=== PATIENT | male | born 1970 | race Caucasian/White ===

== ENCOUNTER 2019-10-07 08:30 | Inpatient (IN) ==
--- NOTE | 2019-09-19 12:41 | PAT Medication Instructions ---
Medication Instructions Date of Service September 19, 2019 Home Medications cholecalciferol (vitamin D3) [Vitamin D3] 1,000 unit PO QAM cyanocobalamin (vitamin B-12) 1,000 mcg PO QAM ibuprofen 600 mg PO Q6H PRN multivitamin 1 tab PO QAM omega 3,6,9 combination no.7 10,000 mg PO QAM omeprazole 20 mg PO QAM ASK your surgeon for instructions ibuprofen 600 mg PO Q6H PRN STOP taking 2 weeks before surgery (or as soon as possible if surgery is within 2 weeks) omega 3,6,9 combination no.7 10,000 mg PO QAM DO NOT take the morning of surgery cholecalciferol (vitamin D3) [Vitamin D3] 1,000 unit PO QAM cyanocobalamin (vitamin B-12) 1,000 mcg PO QAM multivitamin 1 tab PO QAM Take morning of surgery With a small sip of water, OTHERWISE NOTHING TO EAT OR DRINK AFTER MIDNIGHT: omeprazole 20 mg PO QAM Other Notes If you have any questions please call us at [phone] or [phone] or [phone] or [phone]
--- NOTE | 2019-09-19 12:42 | Anesthesiology Consultation ---
Date of Service September 19, 2019 Assessment & Plan (1) Encounter for pre-operative examination: - Awaiting review preop testing (labs, EKG, CXR). - Awaiting surgeon-ordered PCP preop evaluation. Chart Review Chart Review: Patient seen in Pre Admission Testing Teaching & Discussion Pre-Anesthesia Teaching/Discussion Notes: Instructed NPO after midnight before surgery,except medications with 15 cc of water. Medication instructions provided according to the PAT guidelines. History Surgery Operation Date: 10/07/19 13:00 Proposed Procedures p Left Total Hip Arthroplasty - Davis Gilbert Height/Weight Height: 5 ft 8 in Weight: 84.9 kg Allergies Allergy/AdvReac Type Severity Reaction Status Date / Time No Known Allergies Allergy Verified 09/12/19 11:56 Medications Home Medications Medication Instructions Recorded Confirmed Last Taken cholecalciferol (vitamin D3) 1,000 unit PO QAM 09/12/19 09/12/19 Unknown [Vitamin D3] cyanocobalamin (vitamin B-12) 1,000 mcg PO QAM 09/12/19 09/12/19 Unknown ibuprofen 600 mg PO Q6H PRN 09/12/19 09/12/19 Unknown multivitamin 1 tab PO QAM 09/12/19 09/12/19 Unknown omega 3,6,9 combination no.7 10,000 mg PO QAM 09/12/19 09/12/19 Unknown omeprazole 20 mg PO QAM 09/12/19 09/12/19 Unknown Past Medical History Medical History GERD (gastroesophageal reflux disease) controlled Osteoarthritis Exercise / Class Metabolic Activity II 4-5 Yardwork/Stairs/Walk up hill Past Surgical History Surgical History History of herniorrhaphy right/left inguinal History of tonsillectomy History of total hip arthroplasty RIGHT Past Anesthesia History No Hx of Anesthesia Complications and No Family Hx of Anesthesia Complications History of PONV No Hx of PONV and No Hx of Motion Sickness Social History Smoking Status: Former smoker Do You Dip or Chew Tobacco: Yes (1 CAN PER 2 DAYS/ ADVISED NPO) Smoking End Date: 1994 Hx Alcohol Use: Yes Alcohol type: wine alcohol intake frequency: 0-2 drinks per day (1-2 drinks per day (at most 3)) Hx Substance Use: No Review of Systems Reflux controlled. Patient denies chest pain, shortness of breath, dyspnea on exertion, cough, wheezing, palpitations. Physical Exam Vital Signs VITALS BP 127/90 P 82 TEMP 98.6 SP02 100%RA RESP 18 PHYSICAL Full neck and c-spine range of motion. Full TMJ range of motion. TMD 4 finger breaths Mallampati Score 1 Dentition: missing molar Lungs: clear throughout to auscultation Cardiac: regular rate and rhythm, no murmurs noted Spine: normal Carotid arteries: negative bruit Extremities: no edema
--- NOTE | 2019-09-19 13:33 | XRay Report ---
XR chest Pre-admission PA/Lat CLINICAL HISTORY: pat preoperative evaluation COMPARISON STUDY: No previous studies for comparison. FINDINGS: The bones soft tissues and hemidiaphragms are normal. The cardiomediastinal silhouette is n ormal. The lungs are clear. The pulmonary vasculature is normal. IMPRESSION: Negative chest. The above report was generated using voice recognition software. It may contain grammatical, syntax or spelling errors. Electronically signed by: Alexis Delong M.D. 09/19/2019 1:32 PM
[2019-09-19 14:27] LABS: Basophils # (auto) 0.03 K/uL (0-0.2); Basophils % (auto) 0.4 %; Eosinophils # (auto) 0.05 K/uL (0-0.5); Eosinophils % (auto) 0.7 %; Hematocrit (blood only) 44.8 % (42-52); Hemoglobin 16.1 g/dL (14.0-18.0); Immature Granulocytes # (auto) 0.01 K/uL (0.00-0.02); Immature Granulocytes % (auto) 0.1 %; Lymphocytes # (auto) 1.68 K/uL (1.2-3.4); Lymphocytes % (auto) 25.2 %; Mean Corpuscular Hemoglobin 33.1 pg (25-34); Mean Corpuscular Hgb Conc 35.9 g/dL (32-36); Mean Platelet Volume 11.1 fL (7.4-10.4); Monocytes % (auto) 7.5 %; Neutrophils % (auto) 66.1 %; Platelet Count 219 K/uL (130-400); RDW Coefficient of Variation 12.7 % (11.5-14.5); RDW Standard Deviation 42.9 fL (36.4-46.3); Red Blood Count 4.87 M/uL (4.7-6.1); White Blood Count 6.67 K/uL (4.8-10.8)
[2019-09-19 14:34] LABS: Estimated Average Glucose 108 mg/dl; Hemoglobin A1C 5.4 % (4.5-5.6)
[2019-09-19 14:35] LABS: Albumin Level 4.1 gm/dl (3.4-5.0); BUN Creatinine Ratio 8.6 (10-20); Calcium 9.6 mg/dl (8.5-10.1); Creatinine Clr Calc Pharmacy 89.4 ml/min; Potassium 4.5 mmol/L (3.5-5.1)
[2019-09-19 14:43] LABS: Partial Thromboplastin Ratio 0.9; Partial Thromboplastin Time 25.7 Seconds (21.0-31.0); Prothrombin Time 10.5 Seconds (9.0-12.0)
[2019-09-19 14:48] LABS: Appearance Urine Clear (Clear); Bilirubin Urine Negative (Negative); Blood Urine Negative (Negative); Color Urine Yellow; Glucose Urine UA Negative (Negative); Ketones Urine Negative (Negative); Leukocyte Esterase Urine Negative (Negative); Nitrite Urine Negative (Negative); Protein Urine Negative (Negative); Specific Gravity Urine 1.015 (1.000-1.030); Urobilinogen Urine Negative (Negative); pH Urine 8.5 (4.5-7.5)
--- NOTE | 2019-10-03 15:20 | History & Physical Report ---
Date of Service October 03, 2019 Assessment & Plan (1) Degenerative joint disease of left hip: Plan is to admit and undergo left total hip arthroplasty. History of Present Illness Chief Complaint: left hip pain Primary Care Provider: Ramirez Cherry Pt has had left hip pain for years, cant do adls, limping constantly. Has tried nsaids and pt without relief. Allergies Allergy/AdvReac Type Severity Reaction Status Date / Time No Known Allergies Allergy Verified 09/12/19 11:56 Home Medications Home Medications Medication Instructions Recorded Confirmed Type cholecalciferol (vitamin D3) 1,000 unit PO QAM 09/12/19 09/12/19 History [Vitamin D3] cyanocobalamin (vitamin B-12) 1,000 mcg PO QAM 09/12/19 09/12/19 History ibuprofen 600 mg PO Q6H PRN 09/12/19 09/12/19 History multivitamin 1 tab PO QAM 09/12/19 09/12/19 History omega 3,6,9 combination no.7 10,000 mg PO QAM 09/12/19 09/12/19 History omeprazole 20 mg PO QAM 09/12/19 09/12/19 History Past Med/Surg History Medical History GERD (gastroesophageal reflux disease) controlled Osteoarthritis Surgical History History of herniorrhaphy right/left inguinal History of tonsillectomy History of total hip arthroplasty RIGHT Social History Preferred Language: Faroese Communication Ability: Effective Information Analyst Required: No Beliefs That Will Affect Care: None Current Living Situation: Alone Other Information That Helps Us Care for You: No Feels Safe at Home: Yes Safety Concerns: Feels Safe At This Time Smoking Status: Former smoker Do You Dip or Chew Tobacco: Yes (1 CAN PER 2 DAYS/ ADVISED NPO) ; Smoking End Date: QUIT 1994 ; Second Hand Exposure: No ; Hx Alcohol Use: Yes Alcohol type: wine Hx Substance Use: No Review of Systems All systems reviewed & are unremarkable except as noted in HPI & below Physical Exam Constitutional: WD/WN, vitals as above Respiratory: normal respiratory effort, lungs clear to auscultation Cardiovascular: RRR, no murmur, no edema Gastrointestinal (Abdomen): normal bowel sounds, soft, nontender, no hepatosplenomegaly Musculoskeletal: Hip: + limited ROM of hip and + hip ROM with crepitation
[~2019-10-07 08:30] MED LIST: ACETAMINOPHEN 500 MG TAB PO SCH; BUPIVACAINE 0.5 % 5 MG/1 ML PF 10ML VIAL ONE; CEFAZOLIN 2000MG 2,000 MG/15 ML SYR IV SCH; CeleBREX 200 MG CAP PO SCH; FAMOTIDINE 20 MG TAB PO SCH; LR 500ML BOLUS, THEN 15ML/HR IV SCH; METOCLOPRAMIDE HCL 10 MG TABLET PO SCH; ROPIVACAINE 0.5% HCL/PF 150 MG, BUPIVACAINE 0.5% MPF 30 ML, EPINEPHrine 30MG/30ML (OR U... INSTIL SCH; TRANEXAMIC ACID 1,000 MG **IV Intra-op IV SCH; TRANEXAMIC ACID 1,000 MG **IV Pre-op IV SCH; dexAMETHasone 4 MG TAB PO SCH
[2019-10-07] MEDS ORDERED: fentaNYL citrate 100 MCG/2 ML VIAL ONE (08:41)
[2019-10-07] MEDS ORDERED: MIDAZOLAM HCL 1 MG/ML 2ML VIAL ONE ×2 (08:41→09:39)
--- NOTE | 2019-10-07 09:10 | History & Physical Bridge Note ---
Date of Service October 07, 2019 History & Physical Bridge Note I have examined the patient, reviewed the History & Physical and in the interval since the performance of the History & Physical I have noted the following changes of clinical significance: no changes noted
[2019-10-07] MEDS ORDERED: fentaNYL citrate 100 MCG/2 ML VIAL IV PRN (09:22)
[2019-10-07] MEDS ORDERED: ATROPINE SULFATE 0.1 MG/ML 10ML SYR IV PRN (09:22)
[2019-10-07] MEDS ORDERED: HYDROmorphone INJ 2 MG/ML SYR/VIAL IV PRN (09:22)
[2019-10-07] MEDS ORDERED: ePHEDrine sulfate 50 MG/ML AMP IV PRN (09:22)
[2019-10-07] MEDS ORDERED: ONDANSETRON INJ 2 MG/ML 2 ML VIAL IV PRN ×2 (09:22→12:46)
[2019-10-07] MEDS ORDERED: BACITRACIN INJ 50,000 UNIT VIAL ONE (09:34)
[2019-10-07] MEDS ORDERED: ORTHO JOINT ANESTHETIC ONE (09:34)
[2019-10-07] MEDS ORDERED: PROPOFOL IV EMULSION 10 MG/ML 20 ML VIAL IV ONE (10:37)
[2019-10-07] MEDS ORDERED: ONDANSETRON INJ 2 MG/ML 2 ML VIAL ONE (10:37)
[2019-10-07] MEDS ORDERED: LIDOCAINE HCL 2% 2 ML VIAL/AMP(20MG/ML) INFIL ONE (10:37)
--- NOTE | 2019-10-07 10:58 | Post Operative Brief Note ---
Immediate Post Op Note v1 Date of Surgery October 07, 2019 Pre & Post Diagnosis Operation Date: 10/07/19 11:00 Pre-Op Diagnosis: LEFT HIP OSTEOARTHRITIS Post-Op Diagnosis: LEFT HIP OSTEOARTHRITIS I identified the patient and participated in the time-out.: Yes Procedure Operation Date: 10/07/19 11:00 Actual Procedures p Left Total Hip Arthroplasty(Left) - Davis Gilbert Surgeon Davis Gilbert Farm Mechanic Jose Engle PAc Estimated Blood Loss 45 Findings Consistent with Post-Op Diagnosis Complications none Disposition Accompanied Patient To Recovery: No Disposition: Recovery Room
--- NOTE | 2019-10-07 10:59 | Operative Report ---
Post Operative Report Pre & Post Diagnosis Operation Date: 10/07/19 11:00 Pre-Op Diagnosis: LEFT HIP OSTEOARTHRITIS Post-Op Diagnosis: LEFT HIP OSTEOARTHRITIS I identified the patient and participated in the time-out.: Yes Procedure Operation Date: 10/07/19 11:00 Actual Procedures p Left Total Hip Arthroplasty(Left) - Davis Gilbert Surgeon Davis Gilbert Concession Worker Jose Engle PAc Estimated Blood Loss 45 Findings Consistent with Post-Op Diagnosis Specimens none Complications none Disposition Accompanied Patient To Recovery: No Disposition: Recovery Room Description of Procedure IMPLANTS USED: [place] size 56 mm acetabular cup, 1 acetabular screw, a 36 mm X3 elevated liner, a #3 Accolade 2 stem with a 127 neck, 36 mm +2.5 mm ceramic head INDICATIONS: Mr. Kirk is a pleasant male who has unfortunately failed all forms of conservative measures. Therefore, they have has decided to undergo elective surgical intervention. All risks and benefits of the surgery were discussed with the patient and the family in entirety. PROCEDURE: The patient was brought to the operating room and properly identified by myself, anesthesia, and staff. Patient was given a spinal anesthetic and placed on the operating table with the left hip up. The hip was then prepped and draped in the standard orthopedic fashion. We made a standard posterolateral approach over the greater trochanteric area. We then dissected down to subcutaneous tissue until the fascia was identified. We incised the fascia in line with the skin incision. We then split the gluteus fabi muscles with finger dissection. We then put the Charnley retractor in place. We placed the retractor underneath the gluteus medius to expose the piriformis. The piriformis was then tagged with a tag suture and released from the insertion from the greater trochanteric area with the use of electrocautery. We then performed a T capsulotomy and the femoral head and neck were atraumatically dislocated. We then performed femoral neck osteotomy at the pre-template site. We removed the femoral head and neck without difficulty. We then placed the retractor around the acetabulum. We then began to ream the acetabulum to the appropriate size. We then impacted the cup into place and had a very good fixation within the pelvis. We then put the liner in place as well. Then using multiple size approaches from the Accolade 2 system a size ##3 fit very nicely in the proximal femur. I then put trial components in place. WE had very good range of motion, excellent stability, and excellent leg length equality. We removed the trial components and irrigated the wound. We then impacted the components in place and irrigated the wound once more. We then closed the capsule and fascia with a 0 Vicryl suture, the deep dermis with 2-0 Vicryl suture, and finally the skin with a running 3-0 Vicryl subcuticular stitch. A sterile dressing was applied. The patient was taken to the recovery room in stable condition. Due to the complex nature of the procedure, the entire surgery was performed with the operational assistance of Jose Ledbetter PA-C. The animal care assistant was under direct supervision, was involved in the actual performance of all aspects of the surgical procedure including hemostasis, tissue retraction and incision, instrument management, patient positioning, and wound closure. I attest to the content of the Intraoperative Record and any orders documented therein. Any exceptions are noted below.
[2019-10-07] MEDS ORDERED: MEPERIDINE HCL 25 MG/ML CARP ONE (11:51)
[2019-10-07] MEDS ORDERED: MEPERIDINE HCL 25 MG/ML CARP IV STA (12:14)
[2019-10-07] MEDS ORDERED: OXYCODONE HCL IR 5 MG TAB (IMMEDIATE RELEASE) PO PRN (12:46)
[2019-10-07] MEDS ORDERED: METOCLOPRAMIDE HCL INJ 5 MG/ML 2 ML VIAL IV PRN (12:46)
[2019-10-07] MEDS ORDERED: BISACODYL 10 MG SUPP PR PRN (12:46)
[2019-10-07] MEDS ORDERED: NALOXONE HCL 0.4 MG/1 ML VIAL/CARP IV PRN (12:46)
[2019-10-07] MEDS ORDERED: TRAMADOL HCL 50 MG TABLET PO PRN (12:46)
[2019-10-07] MEDS ORDERED: MAGNESIUM HYDROXIDE SUSP 30 ML UDC PO PRN (12:46)
--- NOTE | 2019-10-07 13:02 | Anesthesiology Progress Note ---
Date of Service October 07, 2019 Anesthesia Post Procedure Vital Signs Vital Signs: Temp Pulse Pulse Resp BP Pulse Ox 10/07/19 12:20 36.2 C L 59 L 14 126/91 100 10/07/19 12:10 63 16 132/85 100 10/07/19 12:00 55 L 13 127/90 100 10/07/19 11:50 61 23 117/72 100 10/07/19 11:40 65 19 121/83 100 10/07/19 11:30 67 17 133/95 100 10/07/19 11:21 36.4 C L 87 13 131/95 97 10/07/19 08:52 37 C 76 20 148/93 H 100 Transfer of Care Handoff Completed per policy Notes Mental Status: alert / awake / arousable and participated in evaluation Patient Amnestic to Procedure: Yes Nausea / Vomiting: adequately controlled Pain: adequately controlled Airway Patency, RR, SpO2: stable & adequate BP & HR: stable & adequate Hydration State: stable & adequate Neuraxial Anesthesia: was administered and sensory block is resolving Anesthetic Complications: no major complications apparent and Pt Satisfied with anesthetic care
[2019-10-07] MEDS ORDERED: TRANEXAMIC ACID 1,000 MG in 0.9 % SODIUM CHLORIDE 100 ML IV SCH (16:53)
[2019-10-07] MEDS: ACETAMINOPHEN 500 MG TAB PO SCH ×2 (16:53→22:42)
[2019-10-07] MEDS: SODIUM CHLORIDE 0.9% 1000ML 1,000 ML IV SCH (16:55)
[2019-10-07] MEDS: CEFAZOLIN 2000MG 2,000 MG/15 ML SYR IV SCH (18:55)
[2019-10-07] MEDS: ASPIRIN 81 MG ECTAB PO SCH (20:32)
[2019-10-07] MEDS: DOCUSATE SODIUM 100 MG CAP PO SCH (20:32)
[2019-10-07] MEDS ORDERED: SENNA 8.6 MG TAB PO SCH (21:00)
[2019-10-08] MEDS: CEFAZOLIN 2000MG 2,000 MG/15 ML SYR IV SCH (01:54)
[2019-10-08] MEDS: SODIUM CHLORIDE 0.9% 1000ML 1,000 ML IV SCH (02:31)
[2019-10-08] MEDS: ACETAMINOPHEN 500 MG TAB PO SCH (05:26)
[2019-10-08 06:34] LABS: Basophils # (auto) 0.02 K/uL (0-0.2); Basophils % (auto) 0.1 %; Eosinophils # (auto) 0.01 K/uL (0-0.5); Eosinophils % (auto) 0.1 %; Hematocrit (blood only) 39.6 % (42-52); Hemoglobin 14.1 g/dL (14.0-18.0); Immature Granulocytes # (auto) 0.03 K/uL (0.00-0.02); Immature Granulocytes % (auto) 0.2 %; Lymphocytes # (auto) 1.58 K/uL (1.2-3.4); Lymphocytes % (auto) 11.8 %; Mean Corpuscular Hemoglobin 32.6 pg (25-34); Mean Corpuscular Hgb Conc 35.6 g/dL (32-36); Mean Corpuscular Volume 91.7 fL (80-100); Mean Platelet Volume 10.7 fL (7.4-10.4); Monocytes # (auto) 1.15 K/uL (0.11-0.59); Monocytes % (auto) 8.6 %; Neutrophils # (auto) 10.61 K/uL (1.4-6.5); Neutrophils % (auto) 79.2 %; Platelet Count 209 K/uL (130-400); RDW Coefficient of Variation 12.7 % (11.5-14.5); RDW Standard Deviation 42.5 fL (36.4-46.3); Red Blood Count 4.32 M/uL (4.7-6.1)
[2019-10-08 07:09] LABS: BUN Creatinine Ratio 19.1 (10-20); Creatinine Clr Calc Pharmacy 99.5 ml/min; Est GFR (African American) 108.5; Est GFR (Non-African American) 93.6; Potassium 4.4 mmol/L (3.5-5.1)
--- NOTE | 2019-10-08 07:58 | Orthopedic Progress Note ---
Date of Service October 08, 2019 Assessment & Plan (1) Degenerative joint disease of left hip: Postop day 1 status post left total hip arthroplasty. PT/OT protocols. Weightbearing as tolerated. DVT prophylaxis-aspirin twice daily, AV impulse boots DC planning-patient is planning for home health services upon discharge. Plan to discharge home with the Hemovac intact. Subjective Postop day 1 status post left total hip arthroplasty. Patient is sitting up in bed awake and alert. He has no complaints with his left hip at this time. He states he was having some soreness in his left knee last night but is relatively controlled at this time. He denies any shortness of breath, chest pain, lightheadedness. He is hoping to go home today. Physical Exam Physical Exam: Prevena wound VAC is intact. Hemovac is intact and functioning. 25 mL's from the previous shift. Thigh is soft with some mild swelling. Calves are soft and nontender. Neurovascular is intact. Toes are mobile. He has good dorsiflexion and plantarflexion of his feet. Hip appears located. Results & Data Vital Signs (Past 12 Hours) Vital Signs Temp Pulse Resp BP Pulse Ox 10/08/19 07:49 36.6 C 72 132/88 100 10/08/19 03:15 36.8 C 72 16 144/79 H 96 10/07/19 23:27 36.8 C 73 16 131/77 98 Laboratory Results Laboratory Results WBC 13.40 K/uL (4.8-10.8) H 10/08/19 06:21 RBC 4.32 M/uL (4.7-6.1) L 10/08/19 06:21 Hgb 14.1 g/dL (14.0-18.0) 10/08/19 06:21 Hct 39.6 % (42-52) L 10/08/19 06:21 MCV 91.7 fL (80-100) 10/08/19 06:21 MCH 32.6 pg (25-34) 10/08/19 06:21 MCHC 35.6 g/dL (32-36) 10/08/19 06:21 RDW Std Deviation 42.5 fL (36.4-46.3) 10/08/19 06:21 RDW Coeff of Osman 12.7 % (11.5-14.5) 10/08/19 06:21 Plt Count 209 K/uL (130-400) 10/08/19 06:21 MPV 10.7 fL (7.4-10.4) H 10/08/19 06:21 Immature Gran % (Auto) 0.2 % 10/08/19 06:21 Neut % (Auto) 79.2 % 10/08/19 06:21 Lymph % (Auto) 11.8 % 10/08/19 06:21 Haakon % (Auto) 8.6 % 10/08/19 06:21 Eos % (Auto) 0.1 % 10/08/19 06:21 Baso % (Auto) 0.1 % 10/08/19 06:21 Immature Gran # (Auto) 0.03 K/uL (0.00-0.02) H 10/08/19 06:21 Neut # (Auto) 10.61 K/uL (1.4-6.5) H 10/08/19 06:21 Lymph # (Auto) 1.58 K/uL (1.2-3.4) 10/08/19 06:21 Haakon # (Auto) 1.15 K/uL (0.11-0.59) H 10/08/19 06:21 Eos # (Auto) 0.01 K/uL (0-0.5) 10/08/19 06:21 Baso # (Auto) 0.02 K/uL (0-0.2) 10/08/19 06:21 PT 10.5 Seconds (9.0-12.0) 09/19/19 13:00 INR 1.0 (0.9-1.1) 09/19/19 13:00 APTT 25.7 Seconds (21.0-31.0) 09/19/19 13:00 PTT Ratio 0.9 09/19/19 13:00 Sodium 139 mmol/L (136-145) 10/08/19 06:21 Potassium 4.4 mmol/L (3.5-5.1) 10/08/19 06:21 Chloride 108 mmol/L (98-107) H 10/08/19 06:21 Carbon Dioxide 25 mmol/L (21-32) 10/08/19 06:21 Anion Gap 6.0 (3-11) 10/08/19 06:21 BUN 18 mg/dl (7-18) 10/08/19 06:21 Creatinine 0.95 mg/dl (0.6-1.4) 10/08/19 06:21 Est Cr Clr Drug Dosing 99.5 ml/min 10/08/19 06:21 Est GFR ( Amer) 108.5 10/08/19 06:21 Est GFR (Non-Af Amer) 93.6 10/08/19 06:21 BUN/Creatinine Ratio 19.1 (10-20) 10/08/19 06:21 Glucose 118 mg/dl (70-99) H 10/08/19 06:21 Estimat Average Glucose 108 mg/dl 09/19/19 13:00 Hemoglobin A1c 5.4 % (4.5-5.6) 09/19/19 13:00 Calcium 9.0 mg/dl (8.5-10.1) 10/08/19 06:21 Albumin 4.1 gm/dl (3.4-5.0) 09/19/19 13:00 Urine Color Yellow 09/19/19 Unknown Urine Appearance Clear (Clear) 09/19/19 Unknown Urine pH 8.5 (4.5-7.5) H 09/19/19 Unknown Ur Specific [place] 1.015 (1.000-1.030) 09/19/19 Unknown Urine Protein Negative (Negative) 09/19/19 Unknown Urine Glucose (UA) Negative (Negative) 09/19/19 Unknown Urine Ketones Negative (Negative) 09/19/19 Unknown Urine Blood Negative (Negative) 09/19/19 Unknown Urine Nitrite Negative (Negative) 09/19/19 Unknown Urine Bilirubin Negative (Negative) 09/19/19 Unknown Urine Urobilinogen Negative (Negative) 09/19/19 Unknown Ur Leukocyte Esterase Negative (Negative) 09/19/19 Unknown Nasal Screen MRSA (PCR) Negative (Negative) 09/19/19 Unknown Blood Type A Positive 09/19/19 13:00 Antibody Screen NEGATIVE 09/19/19 13:00
[2019-10-08] MEDS ORDERED: dexAMETHasone 10 MG in SYRINGE 0 ML IV SCH (08:00)
--- NOTE | 2019-10-08 08:00 | Anesthesiology Progress Note ---
Date of Service October 08, 2019 Anesthesia Post Procedure Vital Signs Vital Signs: Temp Pulse Pulse Resp BP Pulse Ox 10/08/19 07:49 36.6 C 72 132/88 100 10/08/19 03:15 36.8 C 72 16 144/79 H 96 10/07/19 23:27 36.8 C 73 16 131/77 98 10/07/19 19:10 36.9 C 76 18 118/78 98 10/07/19 15:45 36.7 C 66 17 110/73 97 10/07/19 14:40 84 16 111/73 95 10/07/19 13:40 71 16 123/84 100 10/07/19 13:08 63 15 118/82 100 10/07/19 12:50 36.5 C 69 14 127/87 100 10/07/19 12:20 36.2 C L 59 L 14 126/91 100 10/07/19 12:10 63 16 132/85 100 10/07/19 12:00 55 L 13 127/90 100 10/07/19 11:50 61 23 117/72 100 10/07/19 11:40 65 19 121/83 100 10/07/19 11:30 67 17 133/95 100 10/07/19 11:21 36.4 C L 87 13 131/95 97 10/07/19 08:52 37 C 76 20 148/93 H 100 Notes Mental Status: alert / awake / arousable and participated in evaluation Patient Amnestic to Procedure: Yes Nausea / Vomiting: adequately controlled Pain: adequately controlled Airway Patency, RR, SpO2: stable & adequate BP & HR: stable & adequate Hydration State: stable & adequate Neuraxial Anesthesia: was administered and sensory block resolved Anesthetic Complications: no major complications apparent and Pt Satisfied with anesthetic care
[2019-10-08] MEDS: DOCUSATE SODIUM 100 MG CAP PO SCH (08:42)
[2019-10-08] MEDS: ASPIRIN 81 MG ECTAB PO SCH (08:42)
--- NOTE | 2019-10-09 11:14 | Discharge Summary ---
Date of Service October 09, 2019 Admission HPI Per Admitting Provider Pt has had left hip pain for years, cant do adls, limping constantly. Has tried nsaids and pt without relief. Admission Exam Per Admitting Provider Physical Exam Constitutional: WD/WN, vitals as above Respiratory: normal respiratory effort, lungs clear to auscultation Cardiovascular: RRR, no murmur, no edema Gastrointestinal (Abdomen): normal bowel sounds, soft, nontender, no hepatosplenomegaly Musculoskeletal: Hip: + limited ROM of hip and + hip ROM with crepitation Principal Diagnosis Left hip osteoarthritis Discharge Exam Physical Exam: Prevena wound VAC is intact. Hemovac is intact and functioning. 25 mL's from the previous shift. Thigh is soft with some mild swelling. Calves are soft and nontender. Neurovascular is intact. Toes are mobile. He has good dorsiflexion and plantarflexion of his feet. Hip appears located. Discharge Data Allergies Allergy/AdvReac Type Severity Reaction Status Date / Time No Known Allergies Allergy Verified 10/07/19 08:51 Consultations 10/08/19 08:00 Consult Case Management - Discharge Planning Routine Procedures Performed Operation Date: 10/07/19 11:00 Actual Procedures p Left Total Hip Arthroplasty(Left) - [facility] Course (1) Degenerative joint disease of left hip: Patient was admitted on the above-noted date and had the above-noted surgery performed which she tolerated well.On the patient's first postoperative day, he was sitting up in his bed awake and alert. He had no complaints with his left hip. Stated he was having some soreness in his left knee the previous evening but was relatively controlled at this time. He denies any shortness of breath, chest pain, lightheadedness. Chloe wound VAC was intact. Hemovac was intact and functioning. Thigh was soft with some mild swelling. Calves are soft nontender. Neurovascular was intact. Toes are mobile. Hip appears located. Hemoglobin was 14. Vital signs are stable and he was afebrile. He was started on PT and OT protocols. He was continued on DVT prophylaxis and pain management. He progressed well his physical therapy and remaining stable and was felt he be discharged home. Total Time Total Time Spent Total Time Spent (In Minutes): 5 Discharge Plan Discharge Items Patient Disposition: Home - Home Health Services Reason For Visit: LEFT HIP OSTEOARTHRITIS Discharge Diagnosis: Left hip osteoarthritis Activity: Per Instructions section Weightbearing: Left weightbearing Weightbearing Comment: As tolerated with walker Non-emergency contact: Surgeon Call non-emergency contact if: your pain is not controlled, your temperature is above 101.5, your wound has increased redness and your wound has increased drainage Follow-up/Referrals: Ramirez Cherry [Primary Care Provider] - Diet: Regular Addtl Attending Provider Instructions: Please follow Dr. Bajwa's total hip arthroplasty instructions. These will be given to you at the time of discharge. Follow-up with Dr. Bajwa in 2 weeks. Please call for appointment if one has not been made for you. [phone] Prevena - This is a large suction dressing covering your incision. This will help pull any excess drainage from the wound and allow your incision to heal properly. You may shower with this if you can keep the unit outside of the shower. If any bleeding or leakage is noted please call your doctor's office. This will remain on your incision for 7 days and then should be removed. This can be done yourself or by the home nursing staff if applicable. The entire unit is disposable once removed. Once removed, keep incision clean and dry. If redness or drainage is noted, please call your surgeon. Pending Studies at Discharge: No Stand-Alone Forms: [facility] [employer], Opioid Pain Management, Smoking Cessation Medications and DC Order Prescriptions: New sennosides [Senokot] 8.6 mg Tablet 17.2 mg PO HS PRN (Reason: constipation) Qty: 30 RF: 0 aspirin [Ecotrin Low Strength] 81 mg Tablet,Delayed Release (Dr/Ec) 81 mg PO BID 30 Days Qty: 60 RF: 0 acetaminophen [Tylenol Extra Strength] 500 mg Tablet 1,000 mg PO Q8 14 Days Qty: 84 RF: 0 cefadroxil 500 mg capsule 500 mg PO BID Qty: 28 RF: 1 Continued omeprazole 20 mg Capsule,Delayed Release(Dr/Ec) 20 mg PO QAM RF: 0 multivitamin Tablet 1 tab PO QAM RF: 0 cyanocobalamin (vitamin B-12) 1,000 mcg Tablet 1,000 mcg PO QAM RF: 0 cholecalciferol (vitamin D3) [Vitamin D3] 1,000 unit Capsule 1,000 unit PO QAM RF: 0 Discontinued omega 3,6,9 combination no.7 92 mg (43 mg-22 [id number]) Tablet,Chewable 10,000 mg PO QAM RF: 0 ibuprofen 200 mg Capsule 600 mg PO Q6H PRN (Reason: Pain) RF: 0 Discharge Orders: Discharge Order (Routine); Ordered 10/08/19 Ordered By: Jose Ramon/Other Patient Handouts: DVT Prevent Admission Data Admit Date/Time: 10/07/19 11:48 Attending Provider: Davis Gilbert Admit Provider: Davis Gilbert Primary Care Provider: Ramirez Cherry Other Interventions: Discharge Summary Assessment (RN) Last Done: 10/08/19 10:37 DC Date/Time DO NOT enter until pt leaves facility: 10/08/19 11:25
== END 2019-10-08 11:25 | disposition home health service (06) | DRG 470 ==
LOC: ASU 08:30 → 3E 11:48